=== PATIENT | male | born 1975 | race Caucasian/White ===

== ENCOUNTER 2017-02-15 15:15 | Emergency (ER) | payer BC ==
[2017-02-15] MEDS ORDERED: HYDROmorphone 1 MG/ML 1 ML SYRINGE IVP STA ×2 (16:07→16:43)
[2017-02-15] MEDS ORDERED: SODIUM CHLORIDE 0.9% 1,000 ML IV STA ×2 (16:07)
[2017-02-15] MEDS ORDERED: METOCLOPRAMIDE 5 MG/ML 2 ML VIAL IVP STA (16:07)
--- NOTE | 2017-02-15 16:16 | ED ---
General Adult HPI - General Chief complaint: Abdominal Pain Stated complaint: Abd Pain/HX Kidney stone Time Seen by Provider: 02/15/17 16:02 Source: patient, family, RN notes reviewed Mode of arrival: wheelchair Limitations: no limitations - History of Present Illness Initial comments: Chief complaint history of present illness a 41-year-old male here with his significant other. Patient reports proximally one hour ago he developed acute right flank pain. Nausea vomiting. Does have a history of kidney stones. Pain radiates from the right down to the right lower quadrant area. - Related Data Previous Rx's Medication Instructions Recorded Hydrocodone/Acetaminophen [[place] 1 each PO Q6HR PRN #20 tab 02/15/17 5-325] Metoclopramide [Reglan] 5 mg PO ACHS #10 tab 02/15/17 Tamsulosin [Flomax] 0.4 mg PO DAILY #10 cap 02/15/17 Allergies Allergy/AdvReac Type Severity Reaction Status Date / Time No Known Allergies Allergy Verified 02/15/17 16:15 Review of Systems ROS Statement: Those systems with pertinent positive or pertinent negative responses have been documented in the HPI. Review of systems. No headache or visual acuity changes. No chest pain or shortness of breath. Patient has right flank pain that radiates toward the right lower quadrant area of nausea and vomiting. Diaphoretic with the pain. No diarrhea. No neuro deficits. All systems otherwise reviewed. Past medical problems kidney stones. Surgeries none. Family history not respiratory. No known ALLERGIES. ROS Other: All systems not noted in ROS Statement are negative. Past Medical History Additional Past Medical History / Comment(s): kidney stones History of Any Multi-Drug Resistant Organisms: None Reported Past Surgical History: No Surgical Hx Reported Past Psychological History: No Psychological Hx Reported Smoking Status: Never smoker Past Alcohol Use History: None Reported Past Drug Use History: None Reported General Exam - General Exam Comments Initial Comments: General: The patient is awake and alert, mild to moderate distress because of right flank pain nausea vomiting. Vital signs temp 98.2 pulse 70 her sclerae rate 20 pulse ox 99% room air blood pressure 157/94 elevated systolic diastolic most likely due to the patient's pain. Eye: Pupils are equal, round and reactive to light, extra-ocular movements are intact ; there is normal conjunctiva bilaterally. No signs of icterus. Ears, nose, mouth and throat: There are moist mucous membranes and no oral lesions. Neck: The neck is supple, Cardiovascular: There is a regular rate and rhythm. No murmur, rub or gallop is appreciated. Respiratory: Lungs are clear to auscultation, respirations are non-labored, breath sounds are equal. No wheezes, stridor, rales, or rhonchi. Gastrointestinal: Nausea vomiting right flank pain. History kidney stones. No diarrhea. Back: Right flank pain Musculoskeletal: No complaint of numbness tingling or weakness. Skin: No rash Limitations: no limitations Course Vital Signs 02/15/17 15:17 Temperature 98.2 F Pulse Rate 78 Respiratory 20 Rate Blood Pressure 157/94 O2 Sat by Pulse 99 Oximetry Medical Decision Making - Medical Decision Making Medical decision making the patient received IV fluids and antinausea medication and analgesics. Patient's labs show white count of 10 hemoglobin 18 hematocrit of 50 to, potassium 4.1 with BUN 19 creatinine of 1.5, GFR greater than 60. Glucose 122. Urine shows greater than 182 RBCs less than 1 WBC. X-ray of the abdomen was done and reviewed by radiologist his impression is there is normal bowel gas pattern. Psoas margins are normal. No organomegaly is present. There is no 0.8 cm calcification in the inferior pole right kidney. Distal right ureteral stone is not excluded. Multiple phleboliths within the pelvis. There may be a 0.6 cm similar calcification at the inferior pole of the left kidney. Impression ;suspect right renal stone. Inferior pole left renal stone not excluded. As read by Dr. Heredia Patient being rehydrated and states she is feeling better. Patient's feeling better requesting to go home at this time. He'll be placed on Flomax, pain medication, antinausea medications. Advised to continue straining his urine: Negative appointment with his urologist and family doctor. - Lab Data Result diagrams: 02/15/17 16:30 02/15/17 16:30 Lab Results 02/15/17 02/15/17 02/15/17 Range/Units 16:30 16:30 17:10 WBC 10.5 (3.8-10.6) k/uL RBC 5.74 (4.30-5.90) m/uL Hgb 18.3 H (13.0-17.5) gm/dL Hct 52.7 (39.0-53.0) % MCV 91.9 (80.0-100.0) fL MCH 31.8 (25.0-35.0) pg MCHC 34.6 (31.0-37.0) g/dL RDW 12.8 (11.5-15.5) % Plt Count 217 (150-450) k/uL Neutrophils % 69 % Lymphocytes % 24 % Monocytes % 5 % Eosinophils % 1 % Basophils % 1 % Neutrophils # 7.2 (1.3-7.7) k/uL Lymphocytes # 2.5 (1.0-4.8) k/uL Monocytes # 0.5 (0-1.0) k/uL Eosinophils # 0.1 (0-0.7) k/uL Basophils # 0.1 (0-0.2) k/uL Sodium 144 (137-145) mmol/L Potassium 4.1 (3.5-5.1) mmol/L Chloride 106 (98-107) mmol/L Carbon Dioxide 25 (22-30) mmol/L Anion Gap 13 mmol/L BUN 19 (9-20) mg/dL Creatinine 1.50 H (0.66-1.25) mg/dL Est GFR (MDRD) Af Amer >60 (>60 ml/min/1.73 sqM) Est GFR (MDRD) Non-Af 52 (>60 ml/min/1.73 sqM) Glucose 122 H (74-99) mg/dL Calcium 10.0 (8.4-10.2) mg/dL Total Bilirubin 0.7 (0.2-1.3) mg/dL AST 26 (17-59) U/L ALT 31 (21-72) U/L Alkaline Phosphatase 59 (38-126) U/L Total Protein 8.1 (6.3-8.2) g/dL Albumin 4.7 (3.5-5.0) g/dL Amylase 92 (30-110) U/L Lipase 172 (23-300) U/L Urine Color Light Red Urine Appearance Cloudy (Clear) Urine pH 5.5 (5.0-8.0) Ur Specific [place] 1.023 (1.001-1.035) Urine Protein 1+ H (Negative) Urine Glucose (UA) Negative (Negative) Urine Ketones Negative (Negative) Urine Blood Large H (Negative) Urine Nitrite Negative (Negative) Urine Bilirubin Negative (Negative) Urine Urobilinogen <2.0 (<2.0) mg/dL Ur Leukocyte Esterase Negative (Negative) Urine RBC >182 H (0-5) /hpf Urine WBC <1 (0-5) /hpf Ur Squamous Epith Cells 2 (0-4) /hpf Calcium Oxalate Crystal Occasional H (None) /hpf Amorphous Sediment Rare H (None) /hpf Urine Mucus Occasional H (None) /hpf Disposition Clinical Impression: Ureterolithiasis Disposition: HOME SELF-CARE Condition: Fair Instructions: Kidney Stones (ED), Renal Colic (ED), How to Strain Your Urine ( ED) Additional Instructions: Take medications as directed increase fluids. Follow-up family physician and urologist as needed Prescriptions: Hydrocodone/Acetaminophen [[place] 5-325] 1 each PO Q6HR PRN #20 tab PRN Reason: Pain Metoclopramide [Reglan] 5 mg PO ACHS #10 tab Tamsulosin [Flomax] 0.4 mg PO DAILY #10 cap Time of Disposition: 19:18
[2017-02-15 16:47] LABS: Basophils # (A) 0.1 k/uL (0-0.2); Basophils % (A) 1 %; CH 31.5; CHCM 34.4; Eosinophils # (A) 0.1 k/uL (0-0.7); Eosinophils % (A) 1 %; HCT 52.7 % (39.0-53.0); HDW 2.67; HGB 18.3 gm/dL (13.0-17.5); Luc # (Auto) 0.22; Luc % (Auto) 2; Lymphocytes # (A) 2.5 k/uL (1.0-4.8); Lymphocytes % (A) 24 %; MCH 31.8 pg (25.0-35.0); MCHC 34.6 g/dL (31.0-37.0); MCV 91.9 fL (80.0-100.0); Mean Platelet Volume 8.5; Monocytes # (A) 0.5 k/uL (0-1.0); Monocytes % (A) 5 %; Neutrophils # (A) 7.2 k/uL (1.3-7.7); Neutrophils % (A) 69 %; RBC 5.74 m/uL (4.30-5.90); RDW 12.8 % (11.5-15.5); WBC 10.5 k/uL (3.8-10.6)
[2017-02-15 17:00] LABS: ALT 31 U/L (21-72); AST 26 U/L (17-59); Alkaline Phosphatase 59 U/L (38-126); Amylase 92 U/L (30-110); Anion Gap 13 mmol/L; Blood Urea Nitrogen 19 mg/dL (9-20); Carbon Dioxide 25 mmol/L (22-30); Chloride 106 mmol/L (98-107); Glucose 122 mg/dL (74-99); Non-African American GFR(MDRD) 52 (>60 ml/min/1.73 sqM); Potassium 4.1 mmol/L (3.5-5.1); Sodium 144 mmol/L (137-145); Total Bilirubin 0.7 mg/dL (0.2-1.3); Total Protein 8.1 g/dL (6.3-8.2)
--- NOTE | 2017-02-15 17:15 | XR ---
EXAMINATION TYPE: XR KUB DATE OF EXAM: 02/15/2017 4:53 PM COMPARISON: NONE INDICATION: Right flank pain TECHNIQUE: Single view abdomen upright FINDINGS: There is a normal bowel gas pattern. Psoas margins are normal. No organomegaly is present. There is a 0.8 cm calcification in the inferior pole right kidney. Distal right ureteral stone is not excluded. Multiple phleboliths within the pelvis. There may be a 0.6 similar calcification at the in ferior pole the left kidney. IMPRESSION: 1. Suspected right renal stone. 2. Inferior pole left renal stone not excluded
[2017-02-15 17:39] LABS: Amorphous Sediment,Urine Rare /hpf; Appearance,Urine Cloudy (Clear); Bilirubin,Urine Negative (Negative); Calcium Oxalate Crystals,Urine Occasional /hpf; Glucose,Urine (UA) Negative (Negative); Ketones,Urine Negative (Negative); Leukocyte Esterase,Urine Negative (Negative); Mucus,Urine Occasional /hpf; Nitrite,Urine Negative (Negative); PH, Urine 5.5 (5.0-8.0); Particle Count 6022; Protein,Urine 1+ (Negative); RBC,Urine >182 /hpf (0-5); Specific Gravity,Urine 1.023 (1.001-1.035); Squamous Epithelial Cell,Urine 2 /hpf (0-4); UA Billing (MACRO vs. MICRO) MICRO; Urobilinogen,Urine <2.0 mg/dL (<2.0); WBC,Urine <1 /hpf (0-5)
[2017-02-15] MEDS ORDERED: KETOROLAC 30 MG/ML 1 ML VIAL IVP STA (17:46)
[2017-02-15 19:38] VITALS: BP 126/78; PULSE 91; RESP 18; TEMP 98
== END 2017-02-15 19:36 | disposition home or self-care (01) ==
LOC: EC 15:15
DX: N20.1 Calculus of ureter (principal); R11.2 Nausea with vomiting, unspecified; Z87.442 Personal history of urinary calculi
CPT/HCPCS: 36415; 80053; 82150; 83690; 85025; 81001; 87086; 74000; 99284; 96374; 96375 ×2; 96361 ×2; J2765; J1885; J1170

== ENCOUNTER 2017-12-07 17:18 | Emergency (ER) | payer BC ==
--- NOTE | 2017-12-07 17:02 | CT ---
EXAMINATION TYPE: CT abdomen pelvis w con DATE OF EXAM: 12/07/2017 COMPARISON: NONE HISTORY: RLQ pain x2 weeks. CT DLP: 1391 mGycm Automated exposure control for dose reduction was used. TECHNIQUE: Helical acquisition of images was performed from the lung bases through the pelvis. CONTRAST: Performed with Oral Contrast and with IV Contrast, patient injected with 100 mL of Omnipaque 300. FINDINGS: Lung bases are clear. There is no pleural effusion. Heart size is normal. Liver spleen pancreas gallbladder appear normal. Bile ducts are not dilated. There is no adrenal mass . Kidneys show satisfactory contrast opacification. There are bilateral calculi in the lower poles of both kidneys. There is no evidence of a renal mass. There is no hydronephrosis. There is a 4 mm calc ification in the midline dependent urinary bladder. Bladder distends smoothly. There is some prostati c calcification. There are additional calcifications in the dependent urinary bladder. There is no ascites. There are a few small bowel loops that show mild circumferential wall thickening . There are no dilated loops. Appendix appears normal. There is no sign of free air. I see no bony destructive process. CONCLUSION: Nonobstructing renal calculi. Multiple bladder calculi. Prostatic calcifications. Scattered loops of mid small bowel with mild wall thickening is nonspecific and could relate to enter itis. No evidence of a bowel obstruction.
[2017-12-07 17:24] VITALS: PULSE 67
--- NOTE | 2017-12-07 17:53 | ED ---
General Adult HPI - General Chief complaint: Recheck/Abnormal Lab/Rx Stated complaint: FROM CT, NEEDS RESULTS EVALUATED Time Seen by Provider: 12/07/17 17:35 Source: patient, RN notes reviewed Mode of arrival: ambulatory Limitations: no limitations - History of Present Illness Initial comments: 42-year-old male presents emergency Department chief complaint of right flank pain. He states she's been having on and off issues with that which has been worsening. Patient states went to his primary care physician's office today and was sent here for CT with contrast. Patient was sent to the emergency department after he states he does not know why. Patient states he'll a loose stool a day but states more constipated now. Patient denies any nausea vomiting. Patient is a history kidney stones and felt the pain initially was just related to kidney stones. He did have a urinalysis in office which was negative per patient. Patient denies fever, chills, night sweats. Denies any chest pain or shortness of breath. Patient's had no prior abdominal surgeries. He has had prior lithotripsy. - Related Data Home Medications Medication Instructions Recorded Confirmed Hydrocodone/Acetaminophen [[place] 1 - 2 tab PO Q6HR PRN 12/07/17 12/07/17 5-325] Allergies Allergy/AdvReac Type Severity Reaction Status Date / Time No Known Allergies Allergy Verified 12/07/17 17:49 Review of Systems ROS Statement: Those systems with pertinent positive or pertinent negative responses have been documented in the HPI. ROS Other: All systems not noted in ROS Statement are negative. Past Medical History Additional Past Medical History / Comment(s): kidney stones History of Any Multi-Drug Resistant Organisms: MRSA Date of last positivie culture/infection: 07/28/17 MDRO Source:: LEG Past Surgical History: No Surgical Hx Reported Past Psychological History: No Psychological Hx Reported Smoking Status: Never smoker Past Alcohol Use History: None Reported Past Drug Use History: None Reported General Exam Limitations: no limitations General appearance: alert, in no apparent distress Head exam: Present: atraumatic, normocephalic, normal inspection Eye exam: Present: normal appearance, PERRL, EOMI. Absent: scleral icterus, conjunctival injection, periorbital swelling Neck exam: Present: normal inspection, full ROM. Absent: tenderness, meningismus, lymphadenopathy Respiratory exam: Present: normal lung sounds bilaterally. Absent: respiratory distress, wheezes, rales, rhonchi, stridor Cardiovascular Exam: Present: regular rate, normal rhythm, normal heart sounds. Absent: systolic murmur, diastolic murmur, rubs, gallop, clicks GI/Abdominal exam: Present: soft, normal bowel sounds. Absent: distended, tenderness, guarding, rebound, rigid Back exam: Absent: CVA tenderness (R), CVA tenderness (L) Skin exam: Present: warm, dry, intact, normal color. Absent: rash Course Vital Signs 12/07/17 17:22 Temperature 98.1 F Pulse Rate 67 Respiratory 18 Rate Blood Pressure 137/88 O2 Sat by Pulse 99 Oximetry Medical Decision Making - Medical Decision Making 42-year-old male present emergency department with chief complaint of right sided flank pain and right-sided abdominal pain. Patient CT shows possible enteritis, multiple kidney stones and stones within the bladder. There is no acute abnormality on lab work patient does have mild elevation of his creatinine which is normal baseline. Patient will follow-up with PCP and return parameters were discussed. - Lab Data Result diagrams: 12/07/17 18:00 12/07/17 18:00 Lab Results 12/07/17 12/07/17 12/07/17 Range/Units 18:00 18:00 18:00 WBC 6.3 (3.8-10.6) k/uL RBC 5.39 (4.30-5.90) m/uL Hgb 16.5 (13.0-17.5) gm/dL Hct 47.9 (39.0-53.0) % MCV 88.9 (80.0-100.0) fL MCH 30.6 (25.0-35.0) pg MCHC 34.5 (31.0-37.0) g/dL RDW 12.1 (11.5-15.5) % Plt Count 199 (150-450) k/uL Neutrophils % 44 % Lymphocytes % 47 % Monocytes % 5 % Eosinophils % 2 % Basophils % 0 % Neutrophils # 2.8 (1.3-7.7) k/uL Lymphocytes # 2.9 (1.0-4.8) k/uL Monocytes # 0.3 (0-1.0) k/uL Eosinophils # 0.1 (0-0.7) k/uL Basophils # 0.0 (0-0.2) k/uL Sodium 139 (137-145) mmol/L Potassium 4.8 (3.5-5.1) mmol/L Chloride 104 (98-107) mmol/L Carbon Dioxide 26 (22-30) mmol/L Anion Gap 9 mmol/L BUN 23 H (9-20) mg/dL Creatinine 1.44 H (0.66-1.25) mg/dL Est GFR (MDRD) Af Amer >60 (>60 ml/min/1.73 sqM) Est GFR (MDRD) Non-Af 54 (>60 ml/min/1.73 sqM) Glucose 86 (74-99) mg/dL Calcium 9.9 (8.4-10.2) mg/dL Total Bilirubin 0.7 (0.2-1.3) mg/dL AST 38 (17-59) U/L ALT 35 (21-72) U/L Alkaline Phosphatase 48 (38-126) U/L Total Protein 7.3 (6.3-8.2) g/dL Albumin 4.3 (3.5-5.0) g/dL Urine Color Light Yellow Urine Appearance Clear (Clear) Urine pH 5.5 (5.0-8.0) Ur Specific [place] 1.036 H (1.001-1.035) Urine Protein Negative (Negative) Urine Glucose (UA) Negative (Negative) Urine Ketones Negative (Negative) Urine Blood Negative (Negative) Urine Nitrite Negative (Negative) Urine Bilirubin Negative (Negative) Urine Urobilinogen <2.0 (<2.0) mg/dL Ur Leukocyte Esterase Negative (Negative) Disposition Clinical Impression: Right flank pain, Nephrolithiasis, Enteritis Disposition: HOME SELF-CARE Condition: Stable Instructions: Abdominal Pain (ED), Kidney Stones (ED) Additional Instructions: Please return to the Emergency Department if symptoms worsen or any other concerns. Referrals: Jamshid Chung DO [Primary Care Provider] - 1-2 days Time of Disposition: 18:32
[2017-12-07 18:11] LABS: Appearance,Urine Clear (Clear); Basophils % (A) 0 %; Bilirubin,Urine Negative (Negative); Blood,Urine Negative (Negative); Color,Urine Light Yellow; Eosinophils # (A) 0.1 k/uL (0-0.7); Eosinophils % (A) 2 %; Glucose,Urine (UA) Negative (Negative); HCT 47.9 % (39.0-53.0); HGB 16.5 gm/dL (13.0-17.5); Ketones,Urine Negative (Negative); Leukocyte Esterase,Urine Negative (Negative); Lymphocytes # (A) 2.9 k/uL (1.0-4.8); Lymphocytes % (A) 47 %; MCH 30.6 pg (25.0-35.0); MCHC 34.5 g/dL (31.0-37.0); MCV 88.9 fL (80.0-100.0); Mean Platelet Volume 8.4; Monocytes # (A) 0.3 k/uL (0-1.0); Monocytes % (A) 5 %; Neutrophils # (A) 2.8 k/uL (1.3-7.7); Neutrophils % (A) 44 %; Nitrite,Urine Negative (Negative); PH, Urine 5.5 (5.0-8.0); Platelet Count 199 k/uL (150-450); Protein,Urine Negative (Negative); RBC 5.39 m/uL (4.30-5.90); RDW 12.1 % (11.5-15.5); Specific Gravity,Urine 1.036 (1.001-1.035); Urobilinogen,Urine <2.0 mg/dL (<2.0); WBC 6.3 k/uL (3.8-10.6)
[2017-12-07 18:29] LABS: ALT 35 U/L (21-72); AST 38 U/L (17-59); Albumin 4.3 g/dL (3.5-5.0); Alkaline Phosphatase 48 U/L (38-126); Anion Gap 9 mmol/L; Blood Urea Nitrogen 23 mg/dL (9-20); Calcium 9.9 mg/dL (8.4-10.2); Carbon Dioxide 26 mmol/L (22-30); Chloride 104 mmol/L (98-107); Glucose 86 mg/dL (74-99); Potassium 4.8 mmol/L (3.5-5.1); Sodium 139 mmol/L (137-145); Total Bilirubin 0.7 mg/dL (0.2-1.3); Total Protein 7.3 g/dL (6.3-8.2)
[2017-12-07 18:58] VITALS: BP 141/90; RESP 12; TEMP 97.8
== END 2017-12-07 19:10 | disposition home or self-care (01) ==
LOC: EC 17:18
DX: N20.0 Calculus of kidney (principal); K52.9 Noninfective gastroenteritis and colitis, unspecified; K59.00 Constipation, unspecified; Z86.14 Personal history of Methicillin resistant Staphylococcus aureus infection
CPT/HCPCS: 36415; 80053; 85025; 81003; 74177; 99284; Q9967

== ENCOUNTER → 2020-08-15 | Outpatient (CLI) | payer BC | END | disposition home or self-care (01) | LOC: CPPFTMAIN 08:48 | PROVIDERS: ATTEND Family Medicine | DX: R07.89 Other chest pain (principal) | CPT/HCPCS: 94060; 94726; 94729 ==

== ENCOUNTER 2022-01-16 07:25 | Emergency (ER) | payer BC ==
[2022-01-16 07:31] VITALS: RESP 18; TEMP 97.1
[2022-01-16] MEDS ORDERED: SODIUM CHLORIDE 0.9% 500 ML 500 ML IV STA (07:44)
[2022-01-16] MEDS ORDERED: SODIUM CHLORIDE 0.9% 1,000 ML IV STA (07:44)
[2022-01-16] MEDS ORDERED: HYDROmorphone 0.5 MG/0.5 ML SYRINGE IVP STA (07:44)
[2022-01-16] MEDS ORDERED: KETOROLAC 15 MG/ML 1 ML VIAL IVP STA (07:44)
[2022-01-16] MEDS ORDERED: ONDANSETRON 4 MG/2 ML VIAL IVP STA (07:44)
--- NOTE | 2022-01-16 07:50 | ED ---
Abdominal Pain HPI - General Chief Complaint: Abdominal Pain Stated Complaint: Right side pain Time Seen by Provider: 01/16/22 07:32 Source: patient, RN notes reviewed Mode of arrival: ambulatory Limitations: no limitations - History of Present Illness Initial Comments: This a 46-year-old male presents emergency from chief complaint of right-sided abdominal pain. Patient states that initially she's had pain in November when she throws just another kidney stone. Patient states pain has been waxing and waning states overnight he's had severe pain and right side. He states nothing makes it feel better or worse. He did see his PCP on Thursday given Azo. Patient states that her changes urine orange states that has not helped his pain states that she worse. No nausea vomiting diarrhea constipation or dysuria no hematuria denies any prior abdominal surgeries no chest pain or shortness of breath. Patient had no prior colonoscopy. - Related Data Home Medications Medication Instructions Recorded Confirmed Febuxostat [Uloric] 40 mg PO HS 01/16/22 01/16/22 Minocycline HCl [Minocin] 100 mg PO W/LUNCH 01/16/22 01/16/22 Phenazopyridine HCl [Pyridium] 100 mg PO TID PRN 01/16/22 01/16/22 Allergies Allergy/AdvReac Type Severity Reaction Status Date / Time aspirin AdvReac Abdominal Verified 01/16/22 08:33 Pain Review of Systems ROS Statement: Those systems with pertinent positive or pertinent negative responses have been documented in the HPI. ROS Other: All systems not noted in ROS Statement are negative. Past Medical History Additional Past Medical History / Comment(s): kidney stones History of Any Multi-Drug Resistant Organisms: MRSA Date of last positivie culture/infection: 07/28/17 MDRO Source:: LEG Past Surgical History: No Surgical Hx Reported Past Psychological History: No Psychological Hx Reported Smoking Status: Never smoker Past Alcohol Use History: Occasional Past Drug Use History: None Reported General Exam Limitations: no limitations General appearance: alert, in no apparent distress Head exam: Present: atraumatic, normocephalic, normal inspection Eye exam: Present: normal appearance, PERRL, EOMI. Absent: scleral icterus, conjunctival injection, periorbital swelling ENT exam: Present: normal exam, normal oropharynx, mucous membranes moist Neck exam: Present: normal inspection, full ROM. Absent: tenderness, meningismus, lymphadenopathy Respiratory exam: Present: normal lung sounds bilaterally. Absent: respiratory distress, wheezes, rales, rhonchi, stridor Cardiovascular Exam: Present: regular rate, normal rhythm, normal heart sounds. Absent: systolic murmur, diastolic murmur, rubs, gallop, clicks GI/Abdominal exam: Present: soft, normal bowel sounds. Absent: distended, ten derness (No tenderness over the area patient's reported pain), guarding, rebound, rigid Back exam: Absent: CVA tenderness (R), CVA tenderness (L) Neurological exam: Present: alert, oriented X3, CN II-XII intact Skin exam: Present: warm, dry, intact, normal color. Absent: rash Course Vital Signs 01/16/22 07:27 Temperature 97.1 F L Pulse Rate 65 Respiratory 18 Rate Blood Pressure 155/106 O2 Sat by Pulse 97 Oximetry Medical Decision Making - Medical Decision Making CT shows evidence of recently passed stone within the bladder patient does have moderate constipation. Patient symptoms are greatly improved at this time. Patient lab work does reveal mild elevated kidney function. Patient states that this event monitor. Patient we discharged in stable condition with close follow-up return parameters were discussed rediscussed colonoscopy as patient has been having ongoing abdominal pain and bowel issues. - Lab Data Result diagrams: 01/16/22 07:53 01/16/22 07:53 Lab Results 01/16/22 01/16/22 01/16/22 Range/Units 07:53 07:53 07:53 WBC 5.8 (3.8-10.6) k/uL RBC 5.47 (4.30-5.90) m/uL Hgb 17.1 (13.0-17.5) gm/dL Hct 50.4 (39.0-53.0) % MCV 92.2 (80.0-100.0) fL MCH 31.3 (25.0-35.0) pg MCHC 34.0 (31.0-37.0) g/dL RDW 12.0 (11.5-15.5) % Plt Count 175 (150-450) k/uL MPV 9.1 Neutrophils % 43 % Lymphocytes % 44 % Monocytes % 6 % Eosinophils % 4 % Basophils % 1 % Neutrophils # 2.5 (1.3-7.7) k/uL Lymphocytes # 2.6 (1.0-4.8) k/uL Monocytes # 0.3 (0-1.0) k/uL Eosinophils # 0.2 (0-0.7) k/uL Basophils # 0.1 (0-0.2) k/uL Sodium 142 (137-145) mmol/L Potassium 4.4 (3.5-5.1) mmol/L Chloride 110 H (98-107) mmol/L Carbon Dioxide 24 (22-30) mmol/L Anion Gap 8 mmol/L BUN 21 H (9-20) mg/dL Creatinine 1.46 H (0.66-1.25) mg/dL Est GFR (CKD-EPI)AfAm 66 (>60 ml/min/1.73 sqM) Est GFR (CKD-EPI)NonAf 57 (>60 ml/min/1.73 sqM) Glucose 101 H (74-99) mg/dL Plasma Lactic Acid [place] 1.2 (0.7-2.0) mmol/L Calcium 9.5 (8.4-10.2) mg/dL Total Bilirubin 0.7 (0.2-1.3) mg/dL AST 30 (17-59) U/L ALT 26 (4-49) U/L Alkaline Phosphatase 61 (38-126) U/L Total Protein 7.6 (6.3-8.2) g/dL Albumin 4.2 (3.5-5.0) g/dL Amylase 101 (30-110) U/L Lipase 192 (23-300) U/L Urine Color Urine Appearance (Clear) Urine pH (5.0-8.0) Ur Specific [place] (1.001-1.035) Urine Protein (Negative) Urine Glucose (UA) (Negative) Urine Ketones (Negative) Urine Blood (Negative) Urine Nitrite (Negative) Urine Bilirubin (Negative) Urine Urobilinogen (<2.0) mg/dL Ur Leukocyte Esterase (Negative) 01/16/22 Range/Units 08:54 WBC (3.8-10.6) k/uL RBC (4.30-5.90) m/uL Hgb (13.0-17.5) gm/dL Hct (39.0-53.0) % MCV (80.0-100.0) fL MCH (25.0-35.0) pg MCHC (31.0-37.0) g/dL RDW (11.5-15.5) % Plt Count (150-450) k/uL MPV Neutrophils % % Lymphocytes % % Monocytes % % Eosinophils % % Basophils % % Neutrophils # (1.3-7.7) k/uL Lymphocytes # (1.0-4.8) k/uL Monocytes # (0-1.0) k/uL Eosinophils # (0-0.7) k/uL Basophils # (0-0.2) k/uL Sodium (137-145) mmol/L Potassium (3.5-5.1) mmol/L Chloride (98-107) mmol/L Carbon Dioxide (22-30) mmol/L Anion Gap mmol/L BUN (9-20) mg/dL Creatinine (0.66-1.25) mg/dL Est GFR (CKD-EPI)AfAm (>60 ml/min/1.73 sqM) Est GFR (CKD-EPI)NonAf (>60 ml/min/1.73 sqM) Glucose (74-99) mg/dL Plasma Lactic Acid [place] (0.7-2.0) mmol/L Calcium (8.4-10.2) mg/dL Total Bilirubin (0.2-1.3) mg/dL AST (17-59) U/L ALT (4-49) U/L Alkaline Phosphatase (38-126) U/L Total Protein (6.3-8.2) g/dL Albumin (3.5-5.0) g/dL Amylase (30-110) U/L Lipase (23-300) U/L Urine Color Dark Yellow Urine Appearance Clear (Clear) Urine pH 6.0 (5.0-8.0) Ur Specific [place] >1.050 H (1.001-1.035) Urine Protein Negative (Negative) Urine Glucose (UA) Negative (Negative) Urine Ketones Negative (Negative) Urine Blood Negative (Negative) Urine Nitrite Negative (Negative) Urine Bilirubin Negative (Negative) Urine Urobilinogen <2.0 (<2.0) mg/dL Ur Leukocyte Esterase Negative (Negative) Disposition Clinical Impression: Constipation, Abdominal pain, Kidney stone Disposition: HOME SELF-CARE Condition: Stable Instructions (If sedation given, give patient instructions): Kidney Stones (ED) Additional Instructions: Please return to the Emergency Department if symptoms worsen or any other concerns. Is patient prescribed a controlled substance at d/c from ED?: No Referrals: Jamshid Chung DO [Primary Care Provider] - 1-2 days Alexis Boothe MD [Medical Doctor] - 1-2 days Fern Cowart MD [STAFF PHYSICIAN] - 1-2 days Time of Disposition: 10:35
[2022-01-16 08:07] LABS: Basophils # (A) 0.1 k/uL (0-0.2); Basophils % (A) 1 %; Eosinophils # (A) 0.2 k/uL (0-0.7); Eosinophils % (A) 4 %; HCT 50.4 % (39.0-53.0); HGB 17.1 gm/dL (13.0-17.5); Lymphocytes # (A) 2.6 k/uL (1.0-4.8); Lymphocytes % (A) 44 %; MCH 31.3 pg (25.0-35.0); MCV 92.2 fL (80.0-100.0); Mean Platelet Volume 9.1; Monocytes # (A) 0.3 k/uL (0-1.0); Monocytes % (A) 6 %; Neutrophils # (A) 2.5 k/uL (1.3-7.7); Neutrophils % (A) 43 %; Platelet Count 175 k/uL (150-450); RBC 5.47 m/uL (4.30-5.90); WBC 5.8 k/uL (3.8-10.6)
[2022-01-16 08:20] LABS: Albumin 4.2 g/dL (3.5-5.0); Calcium 9.5 mg/dL (8.4-10.2); Potassium 4.4 mmol/L (3.5-5.1); Total Bilirubin 0.7 mg/dL (0.2-1.3); Total Protein 7.6 g/dL (6.3-8.2)
--- NOTE | 2022-01-16 08:47 | CT ---
EXAMINATION TYPE: CT abdomen pelvis w con DATE OF EXAM: 01/16/2022 COMPARISON: CT dated 12/07/2017 HISTORY: Right side abdominal pain CT DLP: 1304.2 mGycm Automated exposure control for dose reduction was used. TECHNIQUE: Helical acquisition of images was performed from the lung bases through the pelvis. CONTRAST: Performed without Oral Contrast and with IV Contrast, patient injected with 100 mL of Isovue 300. FINDINGS: LUNG BASES: Right basal linear pulmonary atelectasis. 5 mm nodule along the right oblique fissure, li cassy benign. Other smaller right lung base nodules. Precautionary follow-up CT scan in 3 months can b e considered. Right posterior fat-containing diaphragmatic hernia. LIVER/GB: Enlarged liver measuring 18 cm. Questionable hepatic steatosis. No definite hepatic focal l esion. Unremarkable gallbladder. PANCREAS: No significant abnormality is seen. SPLEEN: No significant abnormality is seen. ADRENALS: No significant abnormality is seen. KIDNEYS: 12 mm right lower pole nonobstructing renal calculus with 2 mm calculus at the upper pole of right kidney. 2 left mid to lower pole renal calculi measuring 9 mm and 3 mm. Unremarkable kidneys o therwise. No hydroureter or hydronephrosis. FREE AIR: No free air is visualized. RETROPERITONEAL ADENOPATHY: None visualized REPRODUCTIVE ORGANS: Slightly enlarged prostate with prostatic concretion. Unremarkable seminal vesic les. URINARY BLADDER: Questionable 1 mm calculus seen at the inferior aspect of the urinary bladder, othe rwise unremarkable urinary bladder. PELVIC ADENOPATHY: None visualized. OSSEOUS STRUCTURES: Degenerative changes of the lower thoracic spine. No aggressive bone lesion. BOWEL: Unremarkable stomach, duodenum and small bowel. Mild to moderate fecal loading of the colon. Normal appendix. OTHER: Unremarkable abdominal aorta. No sizable ascites. Small fat-containing umbilical hernia. IMPRESSION: Bilateral nonobstructing renal calculi with suspected very tiny urinary bladder calculus as detailed above. No hydroureter or hydronephrosis. Otherwise no definite acute abnormality seen in the abdomen or the pelvis. Incidental findings as described above.
[2022-01-16 09:54] LABS: Appearance,Urine Clear (Clear); Bilirubin,Urine Negative (Negative); Blood,Urine Negative (Negative); Color,Urine Dark Yellow; Glucose,Urine (UA) Negative (Negative); Ketones,Urine Negative (Negative); Leukocyte Esterase,Urine Negative (Negative); Nitrite,Urine Negative (Negative); Protein,Urine Negative (Negative); Specific Gravity,Urine >1.050 (1.001-1.035); Urobilinogen,Urine <2.0 mg/dL (<2.0)
[2022-01-16 10:55] VITALS: BP 129/82; PULSE 57
== END 2022-01-16 10:54 | disposition home or self-care (01) ==
LOC: EC 07:25
DX: N20.0 Calculus of kidney (principal); K59.00 Constipation, unspecified
CPT/HCPCS: 36415; 74177; 80053; 81003; 82150; 83605; 83690; 85025; 96361; 96374; 96375; 99284

== ENCOUNTER → 2022-04-28 | Outpatient (CLI) | payer BC ==
[2022-04-28 22:27] LABS: Basophils # (A) 0.04 X 10*3/uL (0.00-0.10); Basophils % (A) 0.7 %; Eosinophils # (A) 0.14 X 10*3/uL (0.04-0.35); Eosinophils % (A) 2.5 %; HCT 45.8 % (39.6-50.0); HGB 15.3 g/dL (13.0-17.0); Immature Grans, Automated 0.2 %; Lymphocytes # (A) 2.31 X 10*3/uL (0.90-5.00); MCH 29.9 pg (27.0-32.0); MCHC 33.4 g/dL (32.0-37.0); MCV 89.6 fL (80.0-97.0); Mean Platelet Volume 12.6 fL (9.5-12.2); Monocytes # (A) 0.45 X 10*3/uL (0.20-1.00); NRBC Per 100 WBC 0 /100 WBCS (0.0-0.0); Neutrophils # (A) 2.69 X 10*3/uL (1.80-7.70); Neutrophils % (A) 47.6 %; Platelet Count 204 X 10*3/uL (140-440); RBC 5.11 X 10*6/uL (4.40-5.60); WBC 5.64 X 10*3/uL (4.50-10.00)
[2022-04-28 23:15] LABS: African American GFR (CKD) 49.8 (60.0-200.0); Anion Gap 11.8 mmol/L (10.00-18.00); BUN/Creat Ratio 11.58 Ratio (12.00-20.00); Blood Urea Nitrogen 21.3 mg/dL (9.0-27.0); Calcium 9.4 mg/dL (8.7-10.3); Carbon Dioxide 24.1 mmol/L (20.0-27.5)
[2022-04-29 01:23] LABS: Appearance,Urine Clear (Clear); Bilirubin,Urine Negative (Negative); Blood,Urine Negative (Negative); Color,Urine Yellow (Yellow); Ketones,Urine Negative (Negative); Nitrite,Urine Negative (Negative); Specific Gravity,Urine 1.009 (1.001-1.030); Urobilinogen,Urine 0.2 (0.2,1.0)
== END | disposition home or self-care (01) ==
LOC: LABPAT 15:01
PROVIDERS: ATTEND Urology
DX: Z01.812 Encounter for preprocedural laboratory examination (principal); N20.0 Calculus of kidney
CPT/HCPCS: 80048; 81003; 85025; 87086

== ENCOUNTER 2022-05-09 10:12 | Day surgery (SDC) | payer BC ==
[2022-05-07 10:43] VITALS: BMI 31.3
--- NOTE | 2022-05-09 08:02 | P.HPIHPCON ---
History of Present Illness H&P Date: 05/09/22 Chief Complaint: bilateral renal stone This is a 46-year-old male with history of 14mm right sided renal stone and 9 mm left sided renal, . Discussed with him the option of a ureteroscopy with holmium laser versus ESWL versus observation. He agreed to proceed with bilateral ureteroscopy with holmium laser to address his bilateral renal stones. Discussed the risk which includes but not limited to bleeding, infection, injury to the ureter. Discussed also risk from anesthesia. He understood all the risk and agreed to proceed Consent for Procedure: I have explained the operation/procedure to the patient, including the risks, benefits, side effects, alternative therapies (including not receiving the proposed treatment or service), the likelihood of the patient achieving his/her goals, and potential recuperation problems for the procedure/sedation/analgesia, as well as any blood products, if indicated. I also explained to the patient the risks, benefits and side effects of the alternatives, as well as the risks related to not receiving the proposed procedure, care, treatment, or services. Past Medical History Additional Past Medical History / Comment(s): kidney stones History of Any Multi-Drug Resistant Organisms: MRSA Date of last positivie culture/infection: 07/28/17 MDRO Source:: LEG Past Surgical History: No Surgical Hx Reported Additional Past Surgical History / Comment(s): Lithotripsy, [place] teeth Past Anesthesia/Blood Transfusion Reactions: No Reported Reaction Smoking Status: Never smoker - Past Family History Mother Family Medical History: No Reported History Medications and Allergies Home Medications Medication Instructions Recorded Confirmed Type Minocycline HCl [Minocin] 100 mg PO W/LUNCH 01/16/22 05/07/22 History Tamsulosin HCl [Flomax] 0.4 mg PO HS 05/07/22 05/07/22 History allopurinoL 100 mg PO DAILY 05/07/22 05/07/22 History Allergies Allergy/AdvReac Type Severity Reaction Status Date / Time aspirin AdvReac Abdominal Verified 05/07/22 10:25 Pain & sweating Surgical - Exam - General no distress, no pain - Eyes normal ocular movement - ENT normal nares, normal mucosa - Respiratory normal expansion, normal respiratory effort Assessment and Plan Assessment: OR for bilateral ureteroscopy with holmium laser lithotripsy, stone basketting and stent insertion
[~2022-05-09 10:12] MED LIST: DEXAMETHASONE SOD PHOSPHATE 4 MG/ML 1 ML VIAL IV ONE; HYDROmorphone 0.5 MG/0.5 ML SYRINGE IVP PRN; LACTATED RINGERS 1,000 ML IV SCH; MIDAZOLAM 2 MG/2 ML VIAL IV PRN; ONDANSETRON 4 MG/2 ML VIAL IVP ONE; SCOPOLAMINE 1 MG/72 HR PATCH TRANSDERM ONE
--- NOTE | 2022-05-09 11:02 | XR ---
EXAMINATION TYPE: XR KUB DATE OF EXAM: 05/09/2022 COMPARISON: 02/15/2017 HISTORY: Lithotripsy TECHNIQUE: AP abdomen FINDINGS: Psoas margins are normal. Organomegaly is not evident. Mild fecal debris is within the colo n There are calcifications in the mid inferior pole bilateral kidneys. Largest calcification on the rig ht measures 1.5 cm. Largest calcification on the left measures 1.2 cm. Phleboliths within the pelvis. IMPRESSION: 1. Bilateral mid to inferior pole renal stones
[2022-05-09] MEDS ORDERED: LIDOCAINE 1% (10MG/ML) FOR IV START SQ ONE (11:04)
[2022-05-09] MEDS ORDERED: TAMSULOSIN 0.4 MG CAP.ER.24H PO ONE (11:13)
[2022-05-09] MEDS ORDERED: PROPOFOL 10 MG/ML 20 ML VIAL IV ONE (12:07)
[2022-05-09] MEDS ORDERED: MIDAZOLAM 2 MG/2 ML VIAL ONE (12:07)
[2022-05-09] MEDS ORDERED: HYDROmorphone (PF) 1 MG/ML ONE (12:07)
[2022-05-09] MEDS ORDERED: fentaNYL (PF) 50 MCG/ML 2 ML AMP ONE (12:07)
[2022-05-09] MEDS ORDERED: LIDOCAINE 2% INJ 20 MG/ML (2 ML VIAL) ONE (12:07)
[2022-05-09] MEDS ORDERED: LACTATED RINGERS 1,000 ML IV ONE (14:17)
--- NOTE | 2022-05-09 14:27 | FL ---
Fluoroscopy INDICATION: Pain FINDINGS: Fluoroscopy time: Not recorded seconds. Images obtained: 4. IMPRESSIONS: 1. Documentation of fluoroscopy.
--- NOTE | 2022-05-09 14:29 | P.OP ---
Date of Procedure: 05/09/22 Preoperative Diagnosis: Bilateral renal stones Postoperative Diagnosis: Same Procedure(s) Performed: Cystoscopy, bilateral ureteroscopy, holmium laser lithotripsy, right sided stone basketing, and bilateral stent insertion Implants: 6-Chinese by 26 cm stent bilaterally left on a string Anesthesia: SUZANNE Surgeon: Luis Holley Estimated Blood Loss (ml): 10 Pathology: other (Right renal stones) Condition: stable Disposition: PACU Indications for Procedure: This is a 46-year-old male with history of 14mm right sided renal stone and 9 mm left sided renal, . Discussed with him the option of a ureteroscopy with holmium laser versus ESWL versus observation. He agreed to proceed with bilateral ureteroscopy with holmium laser to address his bilateral renal stones. Discussed the risk which includes but not limited to bleeding, infection, injury to the ureter. Discussed also risk from anesthesia. He understood all the risk and agreed to proceed Operative Findings: Bilateral lower pole stones, Description of Procedure: Patient brought to the operating room, general anesthesia was induced. He was prepped and draped in sterile fashion and placed in dorsal lithotomy position. Cystoscopy fitted with a 21-Chinese sheath was inserted per urethra, cystoscopy was performed which showed no abnormality within the bladder. Attention was then carried to the right ureteral orifice which was intubated with a sensor wire. The wire was advanced to the kidney under fluoroscopy. Next under fluoroscopy 1113 Chinese access sheath was passed over the wire and into the proximal ureter. Next a flexible ureteroscope was inserted through the access sheath, renoscopy was performed which showed a large stone in the lower pole Using the holmium laser the stone was fragmented into small fragments, sizable fragments were removed, repeat renoscopy showed no sizable stones or injury to the kidney, on fluoroscopy there was no radiopaque densities visualized. Pullback ureteroscopy was performed which showed no injury to the ureter or any ureteral stone. As the ureteroscope was withdrawn a sensor wire was advanced through. Next a ureteral stent was passed over the wire, the proximal curl was visualized on fluoroscopy and the distal curl was visualized using the cystoscope. The stent was left on a string. At this time attention was carried to the left side, which was intubated with a sensor wire, the wire was advanced into the kidney under fluoroscopy. Next under fluoroscopy I attempted to pass an 1113 Chinese access sheath but resistance was met at the distal ureter. At this time the flexible ureteroscope was backloaded over the wire, and I was able to navigate the scope over the wire and into the kidney. Renoscopy was performed showed a small stone within the mid pole which was dusted using the holmium laser, an additional stone was visualized in the lower pole, I attempted to laser the stone at the lower pole, but was not able to get a good angle at the stone at this time using the ZeroTip basket the stone was grasped and moved into the upper pole. Using the holmium laser the stone was dusted, repeat renoscopy showed no sizable fragments or injury to the kidney. Pullback ureteroscopy was performed showed no injury to the ureter or any ureteral stones, as the ureteroscope was withdrawn and a sensor wire was advanced through. Next ureteral stent was passed over the wire, the proximal curl was visualized on fluoroscopy and distal curl was visualized using cystoscope. The bladder was emptied at the end of the case. The stent on the left was also left on a string. Patient tolerated procedure well was taken to recovery in stable condition
[2022-05-09] MEDS: MEPERIDINE 50 MG/ML SYRINGE IVP ONE ×2 (14:42→14:48)
[2022-05-09 14:45] VITALS: TEMP 96.6
[2022-05-09] MEDS ORDERED: KETOROLAC 15 MG/ML 1 ML VIAL IVP ONE (15:20)
[2022-05-09 16:06] VITALS: RESP 16
[2022-05-09 16:23] VITALS: BP 141/78; PULSE 80
== END 2022-05-09 16:38 | disposition home or self-care (01) ==
LOC: OR 10:12
PROVIDERS: ATTEND Urology
DX: N20.0 Calculus of kidney (principal); Z86.14 Personal history of Methicillin resistant Staphylococcus aureus infection; Z79.899 Other long term (current) drug therapy; Z88.6 Allergy status to analgesic agent
CPT/HCPCS: 82365; 74018; 52356; C2625; C1769; J2250; J1100; J2175; J0690; J2405; J3010; J1170 ×2; J1885; J2704; J2001

== ENCOUNTER → 2023-08-12 | Outpatient (CLI) | payer BC ==
--- NOTE | 2023-08-12 15:48 | CT ---
EXAMINATION TYPE: CT chest wo/w con CT DLP: 998.1 mGycm, Automated exposure control for dose reduction was used. DATE OF EXAM: 08/12/2023 3:07 PM COMPARISON: 01/16/2022 CT. CLINICAL INDICATION:Male, 47 years old with history of R91.8 abd findings; PHH, Lung nodule. TECHNIQUE: Multiple axial images were obtained through the chest. Sagittal and coronal reformats were created for review. Contrast used:100 ml mL of Isovue 300 without and with IV Contrast (None if empty) Oral contrast used: (None if empty) FINDINGS: LUNGS/ PLEURA: Scattered pulmonary nodules examples include: Right minor fissure intrafissural lymph node series 3 image 43. Right middle lobe pulmonary nodule measuring 4 mm series 3 image 46. Left cosme or fissure intrafissural lymph node image 33, 38. Left lower lobe pulmonary nodule measuring 4 mm familia ge 43. No focal consolidation, pneumothorax or pleural effusion. AIRWAY: Patent and unremarkable. HEART: Size within normal limits. MEDIASTINUM: No gross evidence of adenopathy. VASCULATURE: No aortic aneurysm. MUSCULOSKELETAL: No acute osseous abnormalities SOFT TISSUES/LYMPH NODES: Unremarkable. LOWER NECK: No significant findings. UPPER ABDOMEN: No significant findings. IMPRESSION: Scattered sub-5 mm pulmonary nodules. Yearly low-dose lung cancer screening is recommende d.
== END | disposition home or self-care (01) ==
LOC: RADCTMAIN 14:08
PROVIDERS: ATTEND Family Medicine
DX: R91.8 Other nonspecific abnormal finding of lung field (principal)
CPT/HCPCS: 71270; Q9967

== ENCOUNTER 2024-02-27 13:12 | Emergency (ER) | payer BC ==
[2024-02-27] MEDS: DIPH,PERTUS(ACELL)TETVAC-LF 0.5 ML VIAL IM ONE (13:46)
--- NOTE | 2024-02-27 14:02 | XR ---
EXAMINATION TYPE: XR hand complete 3 views LT DATE OF EXAM: 02/27/2024 Comparison: None Clinical History: 48-year-old male pain after Puncture wound Findings: No acute fracture, subluxation, dislocation is seen. Some debris at the nail of the thumb. Some punct ate debris also noted along the second and third fingers near the PIP joints but suspect probable deysi ris on the skin. Impression: No acute osseous abnormality seen.
[2024-02-27 14:28] VITALS: RESP 18
--- NOTE | 2024-02-27 14:38 | ED ---
Extremity Problem HPI - General Chief complaint: Extremity Problem,Nontraumatic Stated complaint: L hand lac Time Seen by Provider: 02/27/24 13:19 Source: patient, RN notes reviewed Mode of arrival: ambulatory Limitations: no limitations - History of Present Illness Initial comments: This is a 48-year-old male who presents to the emergency department for a left hand injury. States that he was drilling through sheet-metal when the drill bit he was using went partly through his left hand. This was about 1/4 inch drill bit. Unsure when his last tetanus vaccine was. Also not entirely sure how deep this may have gone. Pain is controlled at this time. - Related Data Home Medications Medication Instructions Recorded Confirmed Minocycline HCl [Minocin] 100 mg PO W/LUNCH 01/16/22 05/09/22 Tamsulosin HCl [Flomax] 0.4 mg PO DAILY PRN 05/07/22 05/09/22 Febuxostat 40 mg PO DAILY 05/09/22 05/09/22 Previous Rx's Medication Instructions Recorded Cephalexin [Keflex] 500 mg PO Q12HR #10 cap 05/09/22 HYDROcodone/APAP 5-325MG [Stanton 1 tab PO Q4HR PRN 3 Days #18 tab 05/09/22 5-325] Tamsulosin [Flomax] 0.4 mg PO DAILY #14 cap 05/09/22 cefUROXime axetiL [Ceftin] 500 mg PO BID 7 Days #14 tab 02/27/24 Allergies Allergy/AdvReac Type Severity Reaction Status Date / Time aspirin AdvReac Abdominal Verified 02/27/24 13:17 Pain & sweating Review of Systems ROS Statement: Those systems with pertinent positive or pertinent negative responses have been documented in the HPI. ROS Other: All systems not noted in ROS Statement are negative. Past Medical History Additional Past Medical History / Comment(s): kidney stones History of Any Multi-Drug Resistant Organisms: MRSA Date of last positivie culture/infection: 07/28/17 MDRO Source:: LEG Past Surgical History: No Surgical Hx Reported Past Psychological History: No Psychological Hx Reported Smoking Status: Never smoker Past Alcohol Use History: None Reported Past Drug Use History: None Reported General Exam Limitations: no limitations General appearance: alert, in no apparent distress Head exam: Present: atraumatic, normocephalic, normal inspection Respiratory exam: Present: normal lung sounds bilaterally. Absent: respiratory distress, wheezes, rales, rhonchi, stridor Cardiovascular Exam: Present: regular rate, normal rhythm, normal heart sounds. Absent: systolic murmur, diastolic murmur, rubs, gallop, clicks Extremities exam: Present: other (Puncture wound to the palmar aspect of the left hand with visible subcutaneous tissue. Minor active bleeding.) Neurological exam: Present: alert, oriented X3, CN II-XII intact Psychiatric exam: Present: normal affect, normal mood Course Vital Signs 02/27/24 02/27/24 13:14 14:45 Temperature 97.4 F L 98.4 F Pulse Rate 62 65 Respiratory 18 18 Rate Blood Pressure 147/89 133/77 O2 Sat by Pulse 98 96 Oximetry Procedures - Laceration Laceration #1 Consent Obtained: verbal consent Indication: laceration Site: hand Size (cm): 1 Description: linear Depth: simple, single layer Anesthetic Used: lidocaine 1% Anesthesia Technique: local infiltration Amount (mls): 3 Pre-repair: wound explored, irrigated extensively Type of Sutures: nylon Size of Sutures: 4-0 Number of Sutures: 1 Technique: other (figure of 8) Medical Decision Making - Medical Decision Making This is a 48-year-old male who presents to the emergency department for a left hand injury. Was pt. sent in by a medical professional or institution? @ -No Did you speak to anyone other than the patient for history? @ -No Did you review nursing and triage notes? @ -Yes, and I agree, it is accurate with regards to the patient's symptoms. Were old charts reviewed? @ -No Differential Diagnosis? @ -Differential Musculoskeletal: Muscular strain, contusion, ligament sprain, fracture, arthritis, septic arthritis, bursitis, cellulitis, muscle spasm, nerve compression, DVT, arterial occlusion, herpes zoster, electrolyte abnormality, tumor.... This is not meant to be in all inclusive list EKG interpreted by me (3pts min.)? @ -Not obtained X-rays interpreted by me (1pt min.)? @ -X-ray of the left hand obtained. My interpretation identifies no acute fractures. CT interpreted by me (1pt min.)? @ -Not obtained U/S interpreted by me (1pt. min.)? @ -Not obtained What testing was considered but not performed? (CT, X-rays, U/S, labs)? Why? @ -None What meds were considered but not given? Why? @ -None Did you discuss the management of the patient with other professionals? @ -No Did you reconcile home meds? @ -No Was smoking cessation discussed for >3mins.? @ -No Was critical care preformed (if so, how long)? @ -No Were there social determinants of health that impacted care today? How? (Homelessness, low income, unemployed, alcoholism, drug addiction, transportation, low edu. Level, literacy, decrease access to med. care, halfway, rehab)? @ -No Was there de-escalation of care discussed even if they declined? (Discuss DNR or withdrawal of care, Hospice)? @ -No What co-morbidities impacted this encounter? (DM, HTN, Smoking, COPD, CAD, Cancer, CVA, Hep., AIDS, mental health diagnosis, sleep apnea, morbid obesity)? @ -None Was patient admitted / discharged? @ -Discharged. X-ray of the left hand obtained revealing no acute process. His hand was soaked in bucket of water mixed with hydrogen peroxide and irrigated afterwards as well. A [id number] suture was used to repair the wound. Tetanus vaccine was updated. Prescription for cefuroxime provided with dosing instructions reviewed for infectious prophylaxis. Advised ibuprofen and Tylenol as needed for pain relief and he is instructed to return in 7 to 10 days for suture removal. Undiagnosed new problem with uncertain prognosis? @ -None Drug Therapy requiring intensive monitoring for toxicity (Heparin, Nitro, Insulin, Cardizem)? @ -None Were any procedures done? @ -Laceration repair with sutures Diagnosis/symptom? @ -Puncture wound Acute, or Chronic, or Acute on Chronic? @ -Acute Uncomplicated (without systemic symptoms) or Complicated (systemic symptoms)? @ -Uncomplicated Side effects of treatment? @ -None Exacerbation, Progression, or Severe Exacerbation] @ -Not applicable Poses a threat to life or bodily function? @ -No Return precautions reviewed in depth, the patient is instructed to return to the emergency department with any new, worsening, or concerning symptoms. Patient verbalized understanding. This case was discussed in detail with the attending ED physician, Dr. Montes. Presentation, findings, and treatment plan discussed in detail as well. - Radiology Data Radiology results: report reviewed, image reviewed Disposition Clinical Impression: Puncture wound Disposition: HOME SELF-CARE Instructions (If sedation given, give patient instructions): Care For Your Stitches (ED) Additional Instructions: Return to the emergency department with any new, worsening, or concerning symptoms and in 7-10 days for removal of the stitches. Take the antibiotic as prescribed for 7 days. Alternate with ibuprofen and Tylenol as needed for pain relief. Prescriptions: cefUROXime axetiL [Ceftin] 500 mg PO BID 7 Days #14 tab Is patient prescribed a controlled substance at d/c from ED?: No Referrals: Jamshid Chung DO [Primary Care Provider] - 1-2 days Time of Disposition: 14:38
[2024-02-27 15:07] VITALS: BP 133/77; PULSE 65; TEMP 98.4
== END 2024-02-27 14:51 | disposition home or self-care (01) ==
LOC: EC 13:12
DX: S61.432A Puncture wound without foreign body of left hand, initial encounter (principal); Z88.6 Allergy status to analgesic agent; Z23 Encounter for immunization; W45.8XXA Other foreign body or object entering through skin, initial encounter
CPT/HCPCS: 12001; 90471; 90715; 99283

== ENCOUNTER 2025-05-04 12:06 | Day surgery (SDC) | payer BC ==
[~2025-05-04 12:06] MED LIST changes: -DEXAMETHASONE SOD PHOSPHATE 4 MG/ML 1 ML VIAL IV ONE; -HYDROmorphone 0.5 MG/0.5 ML SYRINGE IVP PRN; -LACTATED RINGERS 1,000 ML IV SCH; +LIDOCAINE 1% (10MG/ML) FOR IV START INTRADERMA PRN; -MIDAZOLAM 2 MG/2 ML VIAL IV PRN; -ONDANSETRON 4 MG/2 ML VIAL IVP ONE; -SCOPOLAMINE 1 MG/72 HR PATCH TRANSDERM ONE
[2025-05-04] MEDS: LACTATED RINGERS 1,000 ML IV SCH (12:46)
[2025-05-04] MEDS: IV FLUID CONTINUATION 1,000 ML IV ONE (12:47)
[2025-05-04 12:51] VITALS: TEMP 97.7
[2025-05-04] MEDS ORDERED: PROPOFOL 10 MG/ML 20 ML VIAL IV ONE (13:02)
[2025-05-04] MEDS ORDERED: LIDOCAINE 1% INJ 10MG/ML (20 ML MDV) ONE (13:02)
--- NOTE | 2025-05-04 13:06 | P.GSHP ---
History of Present Illness H&P Date: 05/04/25 Chief Complaint: Colon cancer screening 49-year-old male here for colonoscopy. No bowel complaints. Has not had 1 previously. Denies family history of colon cancer. Past Medical History Additional Past Medical History / Comment(s): hx kidney stones, gout, heat rash bilateral legs from hiking History of Any Multi-Drug Resistant Organisms: MRSA Date of last positivie culture/infection: 07/28/17 MDRO Source:: LEG Past Surgical History: No Surgical Hx Reported Additional Past Surgical History / Comment(s): lithotripsy Past Anesthesia/Blood Transfusion Reactions: No Reported Reaction Smoking Status: Never smoker - Past Family History Father Family Medical History: Cancer Additional Family Medical History / Comment(s): lung Mother Additional Family Medical History / Comment(s): sepsis - Medications and Allergies Home Medications Medication Instructions Recorded Confirmed Type Febuxostat 40 mg PO DAILY 05/09/22 05/03/25 History Allergies Allergy/AdvReac Type Severity Reaction Status Date / Time aspirin AdvReac Abdominal Verified 05/04/25 12:38 Pain & sweating Surgical - Exam Vital Signs Temp Pulse Resp BP Pulse Ox 97.7 F 82 16 1369/93 98 05/04/25 12:48 05/04/25 12:48 05/04/25 12:48 05/04/25 12:48 05/04/25 12:48 Physical exam: General: Well-developed, well-nourished HEENT: Normocephalic, sclerae nonicteric Abdomen: Nontender, nondistended Extremities: No edema Neuro: Alert and oriented Assessment and Plan (1) Colon cancer screening Narrative/Plan: Will proceed with colonoscopy at this time. Current Visit: Yes Status: Acute Code(s): Z12.11 - ENCOUNTER FOR SCREENING FOR MALIGNANT NEOPLASM OF COLON SNOMED Code(s): 107286079
[2025-05-04 13:32] VITALS: RESP 18
[2025-05-04 13:50] VITALS: BP 116/83; PULSE 63
--- NOTE | 2025-05-16 13:08 | P.PCN ---
Date of Procedure: 05/04/25 Procedure(s) Performed: PREOPERATIVE DIAGNOSIS: Colon cancer screening POSTOPERATIVE DIAGNOSIS: Small cecal polyp PROCEDURE: Colonoscopy with snare polypectomy and clip placement ANESTHESIA: MAC SURGEON: Alexis Boothe M.D. SPECIMENS: Polyp ENDOSCOPIC PROCEDURE: The patient was placed on the endoscopy table in the left decubitus position. The Olympus colonoscope was inserted into the anus and passed under direct visualization to the base of the cecum. The appendiceal orifice was visualized. From that point the scope was slowly withdrawn inspecting all surfaces carefully. The patient had a small polyp at the base of the cecum. This was removed using the snare with cautery technique. Some oozi ng was present from the polypectomy site and a single clip was deployed with no further bleeding. The remainder of the visualized colon was free of any neoplastic inflammatory or polypoid lesions. No visible diverticulosis was seen. Digital rectal examination was normal. The patient was taken to the recovery room in stable condition per anesthesia guidelines. RECOMMENDATIONS: Await biopsy results. Tentatively plan repeat colonoscopy 5 years.
== END 2025-05-04 14:20 | disposition home or self-care (01) ==
LOC: ORWHC2ENDO 12:06
PROVIDERS: ATTEND Surgery
DX: Z12.11 Encounter for screening for malignant neoplasm of colon (principal); D12.0 Benign neoplasm of cecum; F17.200 Nicotine dependence, unspecified, uncomplicated; M10.9 Gout, unspecified; N20.0 Calculus of kidney; Z88.6 Allergy status to analgesic agent; Z79.899 Other long term (current) drug therapy
CPT/HCPCS: 88305; 45385; J2003; J2704